=== PATIENT | male | born 1985 | race Caucasian/White ===

== ENCOUNTER → 2021-11-07 | Outpatient (CLI) | payer OTHER ==
--- NOTE | 2021-11-07 13:54 | REP ---
INDICATION: LOW BACK PAIN COMPARISON: None. TECHNIQUE: AP, lateral, bilateral oblique, and coned-down views of the lumbar spine. FINDINGS: Evidence for prior laminectomy and posterior fixation with prosthetic disc at the L5-S1 level. Alignment and lordosis maintained. Mild/early moderate multilevel degenerative changes throughout the remainder of the examination include mild endplate sclerosis with very subtle marginal spurring. Disc spaces are relatively maintained. No acute fracture/compression injury. IMPRESSION: Minimal multilevel degenerative changes. Postsurgical changes at L5-S1. No acute fracture/compression injury or subluxation. <Electronically signed by Que Bettencourt > 11/07/21 2823
== END ==
LOC: M WUC 13:27
PROVIDERS: ATTEND Physician Assistant
DX: M51.37 Other intervertebral disc degeneration, lumbosacral region (principal); Z98.890 Other specified postprocedural states

== ENCOUNTER → 2022-02-03 | Outpatient (CLI) | payer OTHER | LOC: M RAD 09:41 | PROVIDERS: ATTEND Nurse Practitioner | DX: M51.25 Other intervertebral disc displacement, thoracolumbar region (principal); M51.26 Other intervertebral disc displacement, lumbar region; M48.061 Spinal stenosis, lumbar region without neurogenic claudication; M51.87 Other intervertebral disc disorders, lumbosacral region ==